=== PATIENT | male | born 1960 | race Caucasian/White ===

== ENCOUNTER 2020-02-10 15:01 | Emergency (ER) | payer OTHER ==
[2020-02-10 15:52] LABS: Protime INR 1.12
[2020-02-10 16:01] LABS: Absolute Lymphocytes (CBC) 1.4 K/uL (0.7-4.9); Basophils % 0.8 % (0-1.3); Hematocrit 49.5 % (39.6-49.0); Lymphocytes % 19.7 % (15.3-44.8); MPV 8.4 fL (7.6-11.3); RBC Red Blood Cell Count 5.08 M/uL (4.33-5.43)
--- NOTE | 2020-02-10 16:03 | RAD REPORT ---
EXAM DESCRIPTION: RAD - Chest Single View - 02/10/2020 3:46 pm CLINICAL HISTORY: DYSPNEA COMPARISON: Two view chest September 2018 TECHNIQUE: AP portable chest image was obtained 02/10/2020 3:46 pm . FINDINGS: Lung volumes are low. Patient has chronic, significant left hemidiaphragm elevation reachi ng the hilum. This obscures much of the lower left lung field. Lung negrete are clear of a focal abnor mality. Interstitial pattern is accentuated by the low volumes. Heart and vasculature are normal. No measurable pleural effusion and no pneumothorax. No acute bony abnormality seen. No acute aortic find ings suspected. IMPRESSION: Limited shallow inspiration film without acute cardiopulmonary finding
[2020-02-10 16:04] LABS: ALT/SGPT 40 U/L (12-78); AST/SGOT 21 U/L (15-37); Albumin 4.1 g/dL (3.4-5.0); Alkaline Phosphatase 76 U/L (45-117); BUN Blood Urea Nitrogen 11 mg/dL (7-18); Bicarbonate 27 mmol/L (21-32); Bilirubin Direct 0.1 mg/dL (0-0.2); Bilirubin Total 0.5 mg/dL (0.2-1.0); Glucose Level 176 mg/dL (74-106); Magnesium 2.2 mg/dL (1.8-2.4); NT PRO-BNP 11 pg/mL (<125); Potassium 3.8 mmol/L (3.5-5.1); Protein, Total 8.1 g/dL (6.4-8.2); Sodium Level 139 mmol/L (136-145); Troponin (Emerg Dept Use Only) < 0.02 ng/mL (0.0-0.045)
--- NOTE | 2020-02-10 16:35 | EDPHYS ---
Physician Documentation [facility] Name: Wilbert Mata Age: 59 yrs Sex: Male : 1960 Arrival Date: 02/10/2020 Time: 15:02 Bed 7 Private MD: ED Physician Elder Ramires HPI: 02/09 15:18 This 59 yrs old Male presents to ER via Ambulatory with complaints of kb Shortness Of Breath, Near Syncope. 15:18 The patient has shortness of breath at rest. Onset: The symptoms/episode began/occurred kb 3 day(s) ago. Duration: The symptoms are intermittent, with no pattern. The patient's shortness of breath is aggravated by nothing, is alleviated by nothing. Associated signs and symptoms: Pertinent negatives: chest pain, non-productive cough, productive cough, diaphoresis, dizziness, fever, hemoptysis, loss of consciousness, nausea, numbness in extremities, visual changes, vomiting. Severity of symptoms: At their worst the symptoms were moderate in the emergency department the symptoms have resolved. The patient has not experienced similar symptoms in the past. The patient has not recently seen a physician. Pt reports he was short of breath when he woke up this morning and felt like he was going to pass out. States he has had little episodes over the past few days, but today was worse. [place] and had one more episode of shortness of breath and lightheadedness so he came back to get it checked out. Denies chest pain. . Historical: - Allergies: 15:18 NKDA; em - PMHx: 15:18 pre diabetes; em - PSHx: 15:18 Hernia repair; em - Immunization history:: Flu vaccine is not up to date. - Social history:: Smoking status: Patient denies any tobacco usage or history of. Patient uses alcohol, only on a social basis. Patient/guardian denies using street drugs. ROS: 15:18 Constitutional: Negative for fever, chills, and weight loss, Neck: Negative for injury, kb pain, and swelling, Cardiovascular: Negative for chest pain, palpitations, and edema, Abdomen/GI: Negative for abdominal pain, nausea, vomiting, diarrhea, and constipation, Back: Negative for injury and pain, MS/Extremity: Negative for injury and deformity, Skin: Negative for injury, rash, and discoloration. 15:18 Respiratory: Positive for shortness of breath, Negative for cough, dyspnea on exertion, hemoptysis, orthopnea, pleurisy, sputum production, wheezing. 15:18 Neuro: Positive for near syncope, Negative for altered mental status, dizziness, gait disturbance, headache, hearing loss, loss of consciousness, numbness, seizure activity, speech changes, syncope, tingling, tinnitus, tremor, visual changes, weakness. Exam: 15:18 Constitutional: This is a well developed, well nourished patient who is awake, alert, kb and in no acute distress. Head/Face: Normocephalic, atraumatic. Chest/axilla: Normal chest wall appearance and motion. Nontender with no deformity. No lesions are appreciated. Cardiovascular: Regular rate and rhythm with a normal S1 and S2. No gallops, murmurs, or rubs. Normal PMI, no JVD. No pulse deficits. Respiratory: Lungs have equal breath sounds bilaterally, clear to auscultation and percussion. No rales, rhonchi or wheezes noted. No increased work of breathing, no retractions or nasal flaring. Abdomen/GI: Soft, non-tender, with normal bowel sounds. No distension or tympany. No guarding or rebound. No evidence of tenderness throughout. Skin: Warm, dry with normal turgor. Normal color with no rashes, no lesions, and no evidence of cellulitis. MS/ Extremity: Pulses equal, no cyanosis. Neurovascular intact. Full, normal range of motion. Neuro: Awake and alert, GCS 15, oriented to person, place, time, and situation. Cranial nerves II-XII grossly intact. Motor strength 5/5 in all extremities. Sensory grossly intact. Cerebellar exam normal. Normal gait. Vital Signs: 15:16 BP 161 / 111; Pulse 86; Resp 17; Temp 97.5; Pulse Ox 98% ; Pain 0/10; em 15:45 BP 150 / 93; Pulse 77; Resp 18; Pulse Ox 99% on R/A; em 16:40 BP 143 / 100; Pulse 79; Resp 18; Temp 97.9(O); Pulse Ox 99% on R/A; mh5 MDM: 15:07 Patient medically screened. kb 15:17 Data reviewed: vital signs, nurses notes. Data interpreted: Pulse oximetry: on room air kb is 100 %. Interpretation: normal. 16:32 Counseling: I had a detailed discussion with the patient and/or guardian regarding: the kb historical points, exam findings, and any diagnostic results supporting the discharge/admit diagnosis, lab results, radiology results, the need for outpatient follow up, a family practitioner, to return to the emergency department if symptoms worsen or persist or if there are any questions or concerns that arise at home. ED course: Pt has been asymptomatic since arrival, states "I feel good, I just wanted to get everything checked." Pt's oxygen has been 98-100% on room air since arrival. Continues to deny chest pain. Pt ambulates with steady gait, resp even and unlabored without signs of distress. Will return for worsening symptoms, chest pain or any other concerns. . 02/09 15:14 Order name: Basic Metabolic Panel; Complete Time: 16:28 kb 02/09 15:14 Order name: CBC with Diff; Complete Time: 16:28 kb 02/09 15:14 Order name: LFT's; Complete Time: 16:28 kb 02/09 15:14 Order name: Magnesium; Complete Time: 16:28 kb 02/09 15:14 Order name: NT PRO-BNP; Complete Time: 16:28 kb 02/09 15:14 Order name: PT-INR; Complete Time: 16:28 kb 02/09 15:14 Order name: Troponin (emerg Dept Use Only); Complete Time: 16:28 kb 02/09 15:14 Order name: XRAY Chest (1 view); Complete Time: 16:28 kb 02/09 15:14 Order name: EKG; Complete Time: 15:15 kb 02/09 15:14 Order name: Cardiac monitoring; Complete Time: 15:19 kb 02/09 15:14 Order name: EKG - Nurse/Tech; Complete Time: 15:49 kb 02/09 15:14 Order name: IV Saline Lock; Complete Time: 15:30 kb 02/09 15:14 Order name: Labs collected and sent; Complete Time: 15:30 kb 02/09 15:14 Order name: O2 Per Protocol; Complete Time: 15:19 kb 02/09 15:14 Order name: O2 Sat Monitoring; Complete Time: 15:19 kb Administered Medications: No medications were administered Disposition: 19:45 Co-signature as Attending Physician, Elder Ramires MD I agree with the assessment and apryl plan of care. Disposition: 02/10/20 16:34 Discharged to Home. 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 - Discharge Instructions: Shortness of Breath, [id number]. - Medication Reconciliation Form, Thank You Letter, Antibiotic Education, Prescription Opioid Use form. - Follow up: Emergency Department; When: As needed; Reason: Worsening of condition. Follow up: Private Physician; When: 2 - 3 days; Reason: Recheck today's complaints, Continuance of care, Re-evaluation by your physician. Signatures: Dispatcher [employer] EDMS Cornelia Ribeiro, SABINA-C SABINA-Elder Jett MD MD cha Munoz, Edgar, RN RN em Corrections: (The following items were deleted from the chart) 16:35 16:32 ED course: Pt has been asymptomatic since arrival, states "I feel good, I just kb wanted to get everything checked." Pt's oxygen has been 98-100% on room air since arrival. Continues to deny chest pain. Will return for worsening symptoms, chest pain or any other concerns. . kb 16:55 16:34 02/10/2020 16:34 Discharged to Home. 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 Forms are Medication Reconciliation Form, Thank You Letter, Antibiotic Education, Prescription Opioid Use. Follow up: Emergency Department; When: As needed; Reason: Worsening of condition. Follow up: Private Physician; When: 2 - 3 days; Reason: Recheck today's complaints, Continuance of care, Re-evaluation by your physician. kb
--- NOTE | 2020-02-10 16:35 | ER ---
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 Severe episode this morning at 8 am where he thought he might pass out. Belching a lot on the way here. No cough or fever reported. Coronavirus screen: Client denies travel out of the [place] in the last 14 days. difficulty breathing, shortness of breath, At this time, the client does not indicate any symptoms associated with coronavirus-19. Ebola Screen: Patient denies travel to an Ebola-affected area in the 21 days before illness onset. Initial Sepsis Screen: Does the patient meet any 2 criteria? No. Patient's initial sepsis screen is negative. Risk Assessment: Do you want to hurt yourself or someone else? Patient reports no desire to harm self or others. Onset of symptoms was January 26, 2022. 15:16 Method Of Arrival: Ambulatory em 15:16 Acuity: SAIRA 3 em Historical: - Allergies: 15:18 NKDA; em - PMHx: 15:18 pre diabetes; em - PSHx: 15:18 Hernia repair; em - Immunization history:: Flu vaccine is not up to date. - Social history:: Smoking status: Patient denies any tobacco usage or history of. Patient uses alcohol, only on a social basis. Patient/guardian denies using street drugs. Screenin:25 Abuse screen: Denies threats or abuse. Nutritional screening: No deficits noted. em Tuberculosis screening: No symptoms or risk factors identified. Fall Risk None identified. Assessment: 15:25 General: Appears in no apparent distress. comfortable, Behavior is calm, cooperative, em appropriate for age, Denies fever. Pain: Denies pain. Neuro: Level of Consciousness is awake, alert, obeys commands, Oriented to person, place, time, situation, Appropriate for age. Cardiovascular: Denies chest pain, Capillary refill < 3 seconds Patient's skin is warm and dry. Rhythm is regular. Respiratory: Reports shortness of breath Airway is patent Respiratory effort is even, unlabored, Respiratory pattern is regular, symmetrical, Breath sounds are clear bilaterally. Denies cough. GI: Patient currently denies nausea, vomiting. Derm: Skin is intact, is healthy with good turgor, Skin is pink, warm \T\ dry. Musculoskeletal: Capillary refill < 3 seconds, Range of motion: intact in all extremities. 16:43 Reassessment: Patient appears in no apparent distress at this time. Patient and/or em family updated on plan of care and expected duration. Pain level reassessed. Patient is alert, oriented x 3, equal unlabored respirations, skin warm/dry/pink. Vital Signs: 15:16 BP 161 / 111; Pulse 86; Resp 17; Temp 97.5; Pulse Ox 98% ; Pain 0/10; em 15:45 BP 150 / 93; Pulse 77; Resp 18; Pulse Ox 99% on R/A; em 16:40 BP 143 / 100; Pulse 79; Resp 18; Temp 97.9(O); Pulse Ox 99% on R/A; mh5 ED Course: 15:02 Patient arrived in ED. as 15:07 Cornelia Ribeiro, PATRICKC is PHCP. kb 15:07 Elder Ramires MD is Attending Physician. kb 15:09 Jay Morris, RN is Primary Nurse. em 15:18 Triage completed. em 15:19 Arm band placed on Patient placed in an exam room, on a stretcher. em 15:25 Patient has correct armband on for positive identification. Bed in low position. Call em light in reach. Pulse ox on. NIBP on. 15:28 Initial lab(s) drawn, by me, sent to lab. Inserted saline lock: 22 gauge in right em forearm, using aseptic technique. Blood collected. 15:47 XRAY Chest (1 view) In Process Unspecified. EDMS 15:47 EKG done, by ED staff, reviewed by Elder Ramires MD. em 16:54 No provider procedures requiring assistance completed. IV discontinued, intact, em bleeding controlled, No redness/swelling at site. Pressure dressing applied. Administered Medications: No medications were administered Outcome: 16:34 Discharge ordered by MD. kb 16:54 Discharged to home ambulatory. em 16:54 Condition: stable 16:54 Discharge instructions given to patient, Instructed on discharge instructions, follow up and referral plans. Demonstrated understanding of instructions, follow-up care. 16:55 Patient left the ED. em Signatures: Dispatcher [employer] Cornelia Davila, SABINA-C SABINA-Jay Vences, BREANNA RN dillon Cade, Candace Cade [place] [id number]
--- NOTE | 2020-02-11 07:33 | EKG ---
Test Date: 2020-02-10 Test Time: 15:47:50 Juke Box Servicer: KIMMY MEASUREMENT RESULTS: Intervals: Rate: 81 NH: 146 QRSD: 70 QT: 352 QTc: 408 [place]: P: 28 NH: 146 QRS: 40 T: 60 INTERPRETIVE STATEMENTS: Normal sinus rhythm Normal ECG Compared to ECG 10/15/2018 14:55:43 No significant changes Electronically Signed On 02-11-20 07:32:31 CDT by Morgan Rogers
[2020-02-14 18:09] VITALS: O2SAT 99
[2020-02-14 18:10] VITALS: BP 143/100; TEMP 97.9
== END 2020-02-10 16:55 | disposition home or self-care (01) ==
LOC: ER 15:01
DX: R06.00 Dyspnea, unspecified (principal)
CPT/HCPCS: 36415; 71045; 80048; 80076; 83735; 83880; 84484; 85025; 85610; 93005; 99284

== ENCOUNTER 2022-05-22 07:18 | Day surgery (SDC) | payer OTHER ==
--- NOTE | 2022-05-17 08:45 | RAD REPORT ---
EXAM DESCRIPTION: Марина Coates (2 Views)05/17/2022 8:37 am CLINICAL HISTORY: Preop for inguinal hernia repair COMPARISON: 2019 FINDINGS: Chronic elevation of the left hemidiaphragm Lungs appear clear of acute infiltrate. Heart is normal size
[2022-05-17 09:04] LABS: Absolute Lymphocytes (CBC) 1.6 K/uL (0.7-4.9); Hematocrit 44.8 % (39.6-49.0); Lymphocytes % 18.1 % (15.3-44.8); MCV 96.7 fL (80-100); MPV 7.7 fL (7.6-11.3); RBC Red Blood Cell Count 4.63 M/uL (4.33-5.43)
[2022-05-17 09:12] LABS: SARS-CoV-2 Antigen Rapid Res Negative (Negative)
[2022-05-17 09:15] LABS: Potassium 3.8 mmol/L (3.5-5.1)
--- NOTE | 2022-05-17 16:23 | EKG ---
Test Date: 2022-05-17 Test Time: 08:14:58 Heavy Forger Helper: AGA MEASUREMENT RESULTS: Intervals: Rate: 90 SC: 152 QRSD: 70 QT: 334 QTc: 408 [place]: P: 49 SC: 152 QRS: 42 T: 53 INTERPRETIVE STATEMENTS: Normal sinus rhythm Normal ECG Compared to ECG 02/10/2020 15:47:50 No significant changes Electronically Signed On 05-17-22 16:22:48 ALPINE PATROLLER by Morgan Rogers
[2022-05-22] MEDS ORDERED: FENTANYL CITR 100 MCG/2 ML ONE (07:49)
[2022-05-22] MEDS ORDERED: MIDAZOLAM HCL 2 MG/2 ML INJ ONE (07:50)
[2022-05-22] MEDS ORDERED: propofoL 200 MG/20 ML VIAL IV ONE (07:50)
[2022-05-22] MEDS ORDERED: Ringers Lactate 1,000 ML IV ONE ×2 (07:51→12:30)
[2022-05-22] MEDS ORDERED: LIDOCAINE 2% MPF 5 ML VIAL ONE (07:56)
[2022-05-22] MEDS ORDERED: ONDANSETRON 4 MG/2 ML VIAL ONE ×2 (07:56→12:08)
[2022-05-22] MEDS: CEFAZOLIN SODIUM 1 GM/VIAL ONE ×2 (09:30→09:45)
[2022-05-22] MEDS ORDERED: KETOROLAC 30 MG/ML INJ ONE (09:46)
[2022-05-22] MEDS ORDERED: ROCURONIUM 50 MG/5 ML VIAL IV ONE (09:51)
[2022-05-22] MEDS ORDERED: GLYCOPYRROLATE 0.2 MG/ML SYR ONE (10:16)
[2022-05-22] MEDS ORDERED: NEOSTIGMINE 1 MG/ML -5 ML ONE (10:17)
--- NOTE | 2022-05-22 10:33 | P.OP ---
Date of Service: 05/22/22 Preop diagnosis: Left inguinal hernia Postop diagnosis: Same Procedure performed: Repair left inguinal hernia Surgeon: Dileep Lebron MD Marine Cargo Surveyor: None Estimated blood loss: Minimal Specimen: Cord lipoma Findings: Large cord lipoma and a direct left inguinal hernia Anesthesia: General Complications: None Drains: None Fluids and blood products: Nonapplicable Disposition: Recovery room Operative note: Patient brought to the OR and placed in the supine position. General anesthesia begun. Patient prepped and draped in the usual sterile fashion. Marcaine 0.5% infiltrated in a field block fashion locally in the left groin. 15 blade used to make a 4 cm oblique incision between the pubic tubercle and the anterior iliac superior spine. Subcutaneous tissue divided. Mony's fascia identified and divided. Aponeurosis of the external abdominal oblique identified. It was attenuated. It was opened through the external ring. Ilioinguinal nerve identified retracted out of the field of dissection. Cord mobilized and skeletonized. A large cord lipoma identified. High ligation of the lipoma was done with 2-0 Prolene suture ligature and freehand tied. Cord lipoma was excised and sent to pathology as specimen. Medial to this there was a direct inguinal hernia with preperitoneal fat. The fat was reduced back into the peritoneal cavity and the floor was reconstructed with 2-0 Prolene suture. The closure started at the pubic tubercle to create a new internal ring by joining the conjoined tendon to the shelving edge. Then, a medium sized Marlex mesh mesh placed in the internal ring and secured with VersaTack stapler. Onlay mesh was placed on the inguinal floor and secured medially to the pubic tubercle, superior to the conjoined tendon, inferiorly to the shelving edge and laterally to each other. Ilioinguinal nerve and cord structures placed back in their anatomic location. 3-0 chromic used to reapproximate the Mony's fascia. Staple used to close the skin. Sterile dressing applied. Patient tolerated the procedure in stable condition taken to recovery room in good general co ndition. CC: Dr. Benson's office
[2022-05-22] MEDS ORDERED: HYDROCODONE/APAP 7.5/325 MG TAB PO PRN (10:34)
[2022-05-22] MEDS ORDERED: HYDROCODONE/APAP 7.5/325 MG TAB ONE (11:21)
[2022-05-22] MEDS ORDERED: PROMETHAZINE INJ 25 MG/ML AMP ONE (12:38)
[2022-05-22 13:17] VITALS: BP 113/51; TEMP 97; O2SAT 100
== END 2022-05-22 13:05 | disposition home or self-care (01) ==
LOC: OR 07:18
PROVIDERS: ATTEND Surgery
PROC: 0YU60JZ Supplement Left Inguinal Region with Synthetic Substitute, Open Approach (ICD-10-PCS; principal; 2022-05-22 10:00)
DX: K40.90 Unilateral inguinal hernia, without obstruction or gangrene, not specified as recurrent (principal); Z20.822 Contact with and (suspected) exposure to COVID-19
CPT/HCPCS: 93005; 85025; 80048; 36415; 88302; 71046; 87811; 49505; J2704; J2550; J2001; J2250; J3010; J2710; J7120 ×2; J2405 ×2; J0690